=== PATIENT | male | born 1995 | race Caucasian/White ===

== ENCOUNTER 2022-09-22 14:19 | Emergency (ER) | payer OTHER ==
[~2022-09-22] VITALS: Ht 165.1 cm; Wt 64.8 kg
[2022-09-22 14:44] VITALS: BP 140/78
[2022-09-22 15:40] LABS: Hepatitis B Surface Antibody Negative (Negative)
== END 2022-09-22 15:55 | disposition home or self-care (01) ==
LOC: ER 14:19
DX: S61.032A Puncture wound without foreign body of left thumb without damage to nail, initial encounter (principal); W26.8XXA Contact with other sharp object(s), not elsewhere classified, initial encounter; Y93.89 Activity, other specified; Y92.89 Other specified places as the place of occurrence of the external cause; Y99.8 Other external cause status
CPT/HCPCS: 36415; 86703; 86706; 86803; 87340